=== PATIENT | female | born 1965 ===

== ENCOUNTER 2022-02-05 09:22 | Emergency (ER) | payer SELFPAY ==
[2022-02-05 11:18] LABS: Basophils # (Auto) 0.1 K/mm3 (0.0-0.1); Basophils % (Auto) 1.1 % (0.0-1.8); Eosinophils # (Auto) 0.1 K/mm3 (0.0-0.4); Eosinophils % (Auto) 1.6 % (0.0-4.3); Hematocrit 24.6 % (30.3-42.9); Hemoglobin 7.2 gm/dl (10.1-14.3); Lymphocytes # (Auto) 0.2 K/mm3 (1.2-5.4); Lymphocytes % (Auto) 2.2 % (13.4-35.0); Mean Corpuscular HGB Conc 29 % (30-34); Monocytes # (Auto) 0.7 K/mm3 (0.0-0.8); Monocytes % (Auto) 9.8 % (0.0-7.3); Platelet Count 302 K/mm3 (140-440); Red Blood Count 4.34 M/mm3 (3.65-5.03)
[2022-02-05 11:24] LABS: Mean Corpuscular Volume 57 fl (79-97); Red Cell Distribution Width 20.6 % (13.2-15.2)
[2022-02-05 11:48] LABS: Alanine Aminotransferase 15 units/L (7-56); Albumin 4.5 g/dL (3.9-5); Blood Urea Nitrogen 4 mg/dL (7-17); Calcium 9.6 mg/dL (8.4-10.2); Hemolysis Index 5
[2022-02-05 11:51] LABS: BUN/Creatinine Ratio 7
--- NOTE | 2022-02-05 13:51 | Cat Scan Report ---
CT HEAD WITHOUT CONTRAST INDICATION / CLINICAL INFORMATION: weakness, several syncope events. TECHNIQUE: All CT scans at this location are performed using CT dose reduction for ALARA by means of automated exposure control. COMPARISON: None available. FINDINGS: BRAIN PARENCHYMA: No acute intracranial hemorrhage. No evidence of recent infarct. No mass effect or midline shift. VENTRICULAR SYSTEM/EXTRA-AXIAL SPACES: Ventricles are normal for age. No extra-axial fluid collection . ORBITS: Normal as visualized. SKELETAL SYSTEM/SOFT TISSUES: Normal bones and soft tissues. PARANASAL SINUSES/MASTOID AIR CELLS: No significant abnormality. ADDITIONAL FINDINGS: None. IMPRESSION: 1. No acute intracranial abnormality. Signer Name: Alexi Andino MD Signed: 02/05/2022 1:46 PM Workstation Name: [id number]
[2022-02-05 16:25] LABS: Color,Urine Straw (Yellow)
[2022-02-05 16:26] LABS: Bilirubin,Urine Negative (Negative); Blood,Urine 3+ (Negative); Protein,Urine >500 mg/dL (Negative)
--- NOTE | 2022-02-05 16:29 | Emergency Department Report ---
ED General Adult HPI - General Chief complaint: Weakness Stated complaint: GENERAL WEAKNESS Time Seen by Provider: 02/05/22 12:49 Source: patient, EMS Mode of arrival: Ambulatory Limitations: No Limitations - History of Present Illness Initial comments: 56-year-old female with no significant past medical history reports here to the ER with complaints of fatigue due to anemia. Patient reports that she had a transfusion about 3 months ago at a [facility] facility. Patient also states that she has been passing out in public places unable to recall the events. Patient does report intermittent headaches at times. Patient denies chest pain, shortness of breath, nausea, vomiting, diarrhea, no unilateral weakness. Patient also denies no dizziness no blood in stool no blood in urine. Patient reports she supposed to take her iron pills to help with her anemia but has not been consistent with taking her pills. Patient denies any history of's CVA or CT. No other acute symptoms reported at this time. Severity scale (0 -10): 0 - Related Data Previous Rx's Medication Instructions Recorded Last Taken Type Sulfamethoxazole/Trimethoprim 1 each PO BID 7 Days #14 tab 02/05/22 Unknown Rx [Bactrim DS TAB] Allergies Allergy/AdvReac Type Severity Reaction Status Date / Time No Known Allergies Allergy Unverified 02/05/22 09:38 ED Review of Systems ROS: Stated complaint: GENERAL WEAKNESS Other details as noted in HPI Comment: All other systems reviewed and negative Constitutional: other (Fatigue) Respiratory: denies: shortness of breath Cardiovascular: denies: chest pain, palpitations Neurological: headache, other (Syncopal events) ED Past Medical Hx - Past Medical History Previous Medical History?: No - Medications Home Medications: Home Medications Medication Instructions Recorded Confirmed Last Taken Type Sulfamethoxazole/Trimethoprim 1 each PO BID 7 Days #14 tab 02/05/22 Unknown Rx [Bactrim DS TAB] ED Physical Exam - General Limitations: No Limitations General appearance: alert, in no apparent distress - Head Head exam: Present: atraumatic, normocephalic - Eye Eye exam: Present: normal appearance - ENT ENT exam: Present: mucous membranes moist - Neck Neck exam: Present: normal inspection - Respiratory Respiratory exam: Present: normal lung sounds bilaterally. Absent: respiratory distress - Cardiovascular Cardiovascular Exam: Present: regular rate, normal rhythm. Absent: systolic murmur, diastolic murmur, rubs, gallop - GI/Abdominal GI/Abdominal exam: Present: soft, normal bowel sounds - Extremities Exam Extremities exam: Present: normal inspection - Back Exam Back exam: Present: normal inspection - Neurological Exam Neurological exam: Present: alert, oriented X3, normal gait - Expanded Neurological Exam Expanded Speech: Present: fluid speech Cranial nerves: EOM's Intact: Normal Motor strength exam: RUE: 5, LUE: 5, RLE: 5, LLE: 5 - Psychiatric Psychiatric exam: Present: normal affect, normal mood - Skin Skin exam: Present: warm, dry, intact, normal color. Absent: rash ED Course Vital Signs 02/05/22 02/05/22 02/05/22 09:22 15:05 19:49 Temperature 98.3 F 99.5 F Pulse Rate 95 H 94 H 106 H Respiratory 16 16 12 Rate Blood Pressure 121/60 128/62 130/65 [Left] O2 Sat by Pulse 100 100 99 Oximetry ED Medical Decision Making - Lab Data Result diagrams: 02/05/22 10:33 02/05/22 10:33 - Radiology Data [facility] [address] [id number] Cat Scan Report Signed Patient: MARITA TERRELL MR#: [id number] : 1965 Acct:[id number] Age/Sex: 56 / F ADM Date: 02/05/22 Loc: ED Attending Dr: Ordering Physician: ANOOP ROSARIO NP Date of Service: 02/05/22 Procedure(s): CT head/brain wo con Accession Number(s): [id number] cc: ANOOP ROSARIO NP CT HEAD WITHOUT CONTRAST INDICATION / CLINICAL INFORMATION: weakness, several syncope events. TECHNIQUE: All CT scans at this location are performed using CT dose reduction for ALARA by means of automated exposure control. COMPARISON: None available. FINDINGS: BRAIN PARENCHYMA: No acute intracranial hemorrhage. No evidence of recent infarct. No mass effect or midline shift. VENTRICULAR SYSTEM/EXTRA-AXIAL SPACES: Ventricles are normal for age. No extra- axial fluid collection. ORBITS: Normal as visualized. SKELETAL SYSTEM/SOFT TISSUES: Normal bones and soft tissues. PARANASAL SINUSES/MASTOID AIR CELLS: No significant abnormality. ADDITIONAL FINDINGS: None. IMPRESSION: 1. No acute intracranial abnormality. Signer Name: Keshav Andino MD Signed: 02/05/2022 1:46 PM Workstation Name: [id number] Transcribed By: JS Dictated By: KESHAV ANDINO MD Electronically Authenticated By: KESHAV ANDINO MD Signed Date/Time: 02/05/221345 DD/ 41 TD/TT: - Medical Decision Making 56-year-old female with past medical history of anemia reports to the ER today with complaints of fatigue for few days. Patient also reports she has been passing out in public places for couple of days. Patient denies any current head injury. Reports slight headache. Patient reports that 3 months ago she had a blood transfusion at [facility]. Patient denies shortness of breath, no dizziness, no unilateral weakness to any particular part of the body. No history of strokes or heart attacks. On physical exam there is no acute clinical findings. Patient is neurologically intact. Patient is alert and oriented x4. CT of head is negative No acute process noted in patient's clinical lab work. Hgb is 7.2 and HCT is 24.6no clinical reason for blood transfusion at this time. Patient has been informed to start back taking her iron supplement pills to help with her anemia. Patient has a slight UTI based off urinalysis. Patient informed her lab results her CT findings. As well as her urinalysis findings. Patient to be started on Bactrim twice a day for 7 days. Patient agrees with plan of care and verbalized understanding. Patient is vital signs are stable at time of discharge. Vital Signs 02/05/22 02/05/22 02/05/22 09:22 15:05 19:49 Temperature 98.3 F 99.5 F Pulse Rate 95 H 94 H 106 H Respiratory 16 16 12 Rate Blood Pressure 121/60 128/62 130/65 [Left] O2 Sat by Pulse 100 100 99 Oximetry Lab Results 02/05/22 02/05/22 02/05/22 Range/Units 10:33 10:33 15:14 WBC 7.1 (4.5-11.0) K/mm3 RBC 4.34 (3.65-5.03) M/mm3 Hgb 7.2 L (10.1-14.3) gm/dl Hct 24.6 L (30.3-42.9) % MCV 57 L (79-97) fl MCH 17 L (28-32) pg MCHC 29 L (30-34) % RDW 20.6 H (13.2-15.2) % Plt Count 302 (140-440) K/mm3 Lymph % (Auto) 2.2 L (13.4-35.0) % Bucks % (Auto) 9.8 H (0.0-7.3) % Eos % (Auto) 1.6 (0.0-4.3) % Baso % (Auto) 1.1 (0.0-1.8) % Lymph # (Auto) 0.2 L (1.2-5.4) K/mm3 Bucks # (Auto) 0.7 (0.0-0.8) K/mm3 Eos # (Auto) 0.1 (0.0-0.4) K/mm3 Baso # (Auto) 0.1 (0.0-0.1) K/mm3 Seg Neutrophils % 85.3 H (40.0-70.0) % Seg Neutrophils # 6.1 (1.8-7.7) K/mm3 Sodium 141 (137-145) mmol/L Potassium 3.8 (3.6-5.0) mmol/L Chloride 104.6 (98-107) mmol/L Carbon Dioxide 26 (22-30) mmol/L Anion Gap 14 mmol/L BUN 4 L (7-17) mg/dL Creatinine 0.6 (0.6-1.2) mg/dL Estimated GFR > 60 ml/min BUN/Creatinine Ratio 7 % Glucose 93 (65-100) mg/dL Calcium 9.6 (8.4-10.2) mg/dL Total Bilirubin 0.60 (0.1-1.2) mg/dL AST 24 (5-40) units/L ALT 15 (7-56) units/L Alkaline Phosphatase 73 (35-129) units/L Troponin T < 0.010 (0.00-0.029) ng/mL Total Protein 7.9 (6.3-8.2) g/dL Albumin 4.5 (3.9-5) g/dL Albumin/Globulin Ratio 1.3 % Urine Color Straw (Yellow) Urine Turbidity Clear (Clear) Urine pH 9.0 H (5.0-7.0) Ur Specific Weir 1.005 (1.003-1.030) Urine Protein >500 (Negative) mg/dL Urine Glucose (UA) Negative (Negative) mg/dL Urine Ketones Negative (Negative) mg/dL Urine Blood 3+ (Negative) Urine Nitrite Negative (Negative) Urine Bilirubin Negative (Negative) Urine Urobilinogen 0.0 (<2.0) mg/dL Ur Leukocyte Esterase 1+ (Negative) Urine WBC (Auto) 12.0 H (0.0-6.0) /HPF Urine RBC (Auto) < 1.0 (0.0-6.0) /HPF U Epithel Cells (Auto) 9.0 (0-13.0) /HPF Critical care attestation.: If time is entered above; I have spent that time in minutes in the direct care of this critically ill patient, excluding procedure time. ED Disposition Clinical Impression: Acute UTI Fatigue Qualifiers: Fatigue type: other Qualified Code(s): R53.83 - Other fatigue Anemia Qualifiers: Anemia type: other cause Disposition: 01 HOME / SELF CARE / HOMELESS Is pt being admited?: No Condition: Stable Instructions: Preventing Iron Deficiency Anemia, Adult, Fatigue, Urinary Tract Infection, Adult Prescriptions: Sulfamethoxazole/Trimethoprim [Bactrim DS TAB] 1 each PO BID 7 Days #14 tab Referrals: PRIMARY MD ENEDINA [Primary Care Provider] - 3-5 Days DANGELO RAND MD [Staff Physician] - 3-5 Days
[2022-02-05 16:30] LABS: RBC,Urine < 1.0 /HPF (0.0-6.0)
[2022-02-05 19:50] VITALS: BP 130/65
== END 2022-02-05 19:50 | disposition home or self-care (01) ==
LOC: ED 09:22
DX: N39.0 Urinary tract infection, site not specified (principal); R53.83 Other fatigue; D64.9 Anemia, unspecified
CPT/HCPCS: 36415; 70450; 80053; 81001; 84484; 85025; 87086; 99284